=== PATIENT | male | born 1935 | race Caucasian/White ===

== ENCOUNTER 2017-08-08 09:23 | Day surgery (SDC) | payer MEDICARE, BC ==
[2017-08-08] MEDS ORDERED: ACETAZOLAMIDE 500 MG CER ONE (09:49)
[2017-08-08] MEDS: CYCLOPENTOLATE 1% SOL ONE ×2 (10:00→10:13)
[2017-08-08] MEDS: PROPARACAINE HCL 0.5% OPHTHALMIC SOL ONE ×3 (10:00→11:18)
[2017-08-08] MEDS: PHENYLEPHRINE HCL 10% OPHTHAL SOL ONE ×2 (10:00→10:14)
[2017-08-08] MEDS: KETOROLAC 0.5% OPTH 60 DROP SOL ONE ×2 (10:01→10:16)
[2017-08-08 10:04] VITALS: PULSE 67; RESP 16
[2017-08-08] MEDS ORDERED: FENTANYL 100MCG/2ML SOL ONE (10:46)
[2017-08-08] MEDS ORDERED: MIDAZOLAM 2 MG/2 ML SOL ONE (10:47)
[2017-08-08] MEDS ORDERED: POVIDONE IODINE 5% SOL ONE (11:12)
[2017-08-08] MEDS ORDERED: BSS 500 ML 500 ML IR ONE (11:12)
[2017-08-08] MEDS ORDERED: LIDOCAINE HCL 1% MPF SOL ONE (11:12)
[2017-08-08 11:55] VITALS: BP 153/81; TEMP 97.5; O2SAT 97
== END 2017-08-08 12:14 | disposition home or self-care (01) | DRG 125 ==
LOC: SURG 09:23
PROVIDERS: ATTEND Ophthalmology
DX: H25.9 Unspecified age-related cataract (principal); H40.10X0 Unspecified open-angle glaucoma, stage unspecified
CPT/HCPCS: 0191T; 66984; J2250; J3010; C1783; J2001